=== PATIENT | male | born 1955 | race Caucasian/White ===

== ENCOUNTER 2017-05-19 18:24 | Emergency (ER) | payer MEDICARE, OTHER ==
[2017-05-19] MEDS: ACETAMINOPHEN 325 MG TAB PO (20:49)
== END 2017-05-19 21:54 | disposition left against medical advice (07) ==
LOC: FTE 18:24
DX: S61.211A Laceration without foreign body of left index finger without damage to nail, initial encounter (principal); W25.XXXA Contact with sharp glass, initial encounter; Y92.89 Other specified places as the place of occurrence of the external cause; Z79.82 Long term (current) use of aspirin
CPT/HCPCS: 12001; 99283-25